=== PATIENT | female | born 2000 | race Asian ===

== ENCOUNTER 2020-04-01 22:56 | Emergency (ER) | payer MEDICAID ==
[~2020-04-01] VITALS: Ht 160 cm; Wt 55.3 kg
[~2020-04-01 22:56] MED LIST: ADVAIR HFA 1112 UNIT; ALLEGRA ALLERG180 MG PO; ALLEGRA30 MG; AMITRIPTYLINE H25 M2; BENEFIBER1 EAC1 PO; DEPAKOTE250 MG; DITROPAN XL5 M1 PO; ENSURE LIQUID237 ML PO; ERYTHROMYCIN60 ML PO; FLOMAX0.4 MG PO; FLONASE 0.05%50 MCG NASAL; LEVSIN0.125 MG SL; MIRALAX17 GM PO; MIRALAX255 GM; PEDIALYTE1000 ML PO; RISPERDAL 1 MG T1 MG PO; RISPERDAL0.5 MG SL; SINGULAIR 10 MG10 MG; SYMBYAX 12-251 EACH PO; XOPENEX HF1 UDINHALE; XOPENEX HFA15 GM IH; ZANTAC 7575 MG PO
[2020-04-02 00:35] VITALS: BP 144/90
== END 2020-04-02 00:36 | disposition home or self-care (01) ==
LOC: M.ERS 22:56
DX: Z45.2 Encounter for adjustment and management of vascular access device (principal); K21.9 Gastro-esophageal reflux disease without esophagitis; J45.909 Unspecified asthma, uncomplicated